=== PATIENT | female | born 1965 | race Caucasian/White ===

== ENCOUNTER 2017-07-01 02:08 | Emergency (ER) | payer BC ==
[~2017-07-01] VITALS: Ht 160 cm; Wt 70.3 kg
[2017-07-01 02:16] VITALS: BP 150/60
[2017-07-01] MEDS ORDERED: NACL 0.9% 1,000 ML IV ONE (02:35)
[2017-07-01] MEDS ORDERED: KETOROLAC 30 MG/ML VIAL IVP ONE (02:35)
[2017-07-01] MEDS ORDERED: ONDANSETRON 4 MG/2 ML VIAL IVP ONE (02:35)
--- NOTE | 2017-07-01 02:40 | NUR ---
C/O BODY ACHES WITH N/V X 3 DAYS. MOTRIN 800 MG TAKEN AT 1999. NO MEDICAL HX ABD IS ROUND, SOFT, NON TENDER, ACTIVE BS X4. PT HAS HEADACHE 10/10, AND WHOLE BODY PAINS 10/10, SHARP PAIN,X3 DAYS.
[2017-07-01] MEDS ORDERED: cefTRIAXone 1,000 MG VIAL ONE (02:55)
--- NOTE | 2017-07-01 03:15 | NUR ---
PT STATES SHE IS HAVING "BAD" HEADACHE AND BODY PAINS, ER MD NOTIFIED, WILL CARRY OUT ORDERS.
[2017-07-01] MEDS ORDERED: MORPHINE SULFATE 4 MG/ML SYR IVP ONE (03:55)
[2017-07-01] MEDS ORDERED: MORPHINE SULFATE 2 MG/ML SYR ONE (04:14)
[2017-07-01 04:24] LABS: HEMATOCRIT 36.4 % (36-48); HEMOGLOBIN 12.2 g/dL (12.0-16.0); MEAN CORPUSCULAR HEMOGLOBIN 31 pg (27-31); MEAN CORPUSCULAR HGB CONC 34 g/dL (33-37); MEAN CORPUSCULAR VOLUME 91 fL (80-94); PLATELET COUNT (AUTO) 282 K/uL (140-450); RED BLOOD CELL COUNT(AUTO) 3.98 MIL/uL (4.20-5.40); RED CELL DISTRIBUTION WIDTH 12.7 % (11.6-13.7); WHITE BLOOD COUNT (AUTO) 14.7 K/uL (4.8-10.8)
[2017-07-01 04:25] LABS: APPEARANCE,URINE SL CLOUDY (CLEAR); BILIRUBIN,URINE NEGATIVE (NEGATIVE); BLOOD, URINE 3+ (NEGATIVE); COLOR,URINE YELLOW (YELLOW); LEUKOCYTE ESTERASE ,URINE NEGATIVE (NEGATIVE); NITRITE, URINE NEGATIVE (NEGATIVE); PH,URINE 6.5 (5.0-9.0); UGLUCOSE NEGATIVE (NEGATIVE)
[2017-07-01 04:47] LABS: ALBUMIN 3.2 g/dL (3.4-5.0); ANION GAP 13.6 (8-16); CARBON DIOXIDE 23.6 mmol/L (21-32); CREATININE 0.7 mg/dL (0.6-1.3); POTASSIUM 3.2 mmol/L (3.5-5.1); TOTAL BILIRUBIN 0.3 mg/dL (0.0-1.0)
--- NOTE | 2017-07-01 05:00 | NUR ---
PT STATES SHE HAS NO HEADACHE AT THIS TIME, VSS, WILL CONTINUE TO MONITOR.
[2017-07-01 05:04] LABS: LYMPHOCYTES % (MANUAL) 11 % (20-46); MONOCYTES % (MANUAL) 5 % (5-12)
[2017-07-01 05:19] LABS: RBC,URINE TOO NUMEROUS TO COUN /HPF (0-5); WBC,URINE 0-5 (RARE) /HPF (0-5)
[2017-07-01 05:40] VITALS: BP 111/72
--- NOTE | 2017-07-01 05:40 | NUR ---
Patient discharged with v/s stable. Written and verbal after care instructions given and explained. Patient alert, oriented and verbalized understanding of instructions. Ambulatory with steady gait. All questions addressed prior to discharge. ID band removed. Patient advised to follow up with PMD. Rx of CIPRO 500MG, NAPROSYN 500MG given. Patient educated on indication of medication including possible reaction and side effects. Opportunity to ask questions provided and answered. PT STATED SHE HAD RIDE HOME AND WAS NOT DRIVING.
== END 2017-07-01 05:40 | disposition home or self-care (01) ==
LOC: MED 02:08
DX: N10 Acute pyelonephritis (principal); E86.0 Dehydration; Z91.040 Latex allergy status
CPT/HCPCS: 36415; 74176; 80053; 81001; 85025; 96361; 96365; 96375; 99285; J0696; J1885; J2270; J2405

== ENCOUNTER 2021-04-25 12:57 | Emergency (ER) | payer BC ==
[~2021-04-25] VITALS: Ht 160 cm; Wt 70.3 kg
[2021-04-25 13:10] VITALS: BP 126/88
--- NOTE | 2021-04-25 13:15 | NUR ---
PT TAKEN TO ER BED 4.
--- NOTE | 2021-04-25 13:26 | NUR ---
DR. HUNG AT PT BEDSIDE FOR FURTHER EVALUATION.
[2021-04-25] MEDS ORDERED: KETOROLAC 60 MG/2 ML VIAL IM ONE (13:30)
--- NOTE | 2021-04-25 13:30 | NUR ---
55/F BIB SELF WITH C/O LOWER ABDOMINAL CRAMPING SINCE YESTERDAY MORNING. STATES PAIN IS CONSTANT AND HAS BEEN WORSENING, REPORTS 1 EPISODE OF DIARRHEA. DENIES N/V, SOB, CP, FEVER. REPORTS TAKING EXCEDRIN WITH NO RELIEF. PMH: DIVERTICULITIS ALLERGIES: LATEX
--- NOTE | 2021-04-25 13:35 | NUR ---
ROTARY CUTTER AT PT BEDSIDE.
--- NOTE | 2021-04-25 13:47 | NUR ---
PT TAKEN TO CT VIA RNICOLE.
--- NOTE | 2021-04-25 13:51 | NUR ---
PT TAKEN TO ER BED 4 VIA GRAEMERNICOLE.
[2021-04-25 13:52] LABS: BASOPHILS # (AUTO) 0.1 K/uL (0.00-0.22); BASOPHILS % (AUTO) 0.7 % (0.0-2.0); EOSINOPHILS % (AUTO) 0.3 % (0.0-4.0); HEMATOCRIT 40.7 % (36-48); HEMOGLOBIN 13.7 g/dL (12.0-16.0); LYMPHOCYTES # (AUTO) 1.7 K/uL (2.5-16.5); LYMPHOCYTES % (AUTO) 13.6 % (20.5-51.1); MEAN CORPUSCULAR HEMOGLOBIN 32 pg (27-31); MEAN CORPUSCULAR HGB CONC 34 g/dL (33-37); MEAN CORPUSCULAR VOLUME 93.5 fL (80-94); MONOCYTES # (AUTO) 0.7 K/uL (0.8-1.0); MONOCYTES % (AUTO) 5.8 % (1.7-9.3); NEUTROPHILS % (AUTO) 79.6 % (42.2-75.2); PLATELET COUNT (AUTO) 368 K/uL (140-450); RED BLOOD CELL COUNT(AUTO) 4.36 MIL/uL (4.20-5.40); RED CELL DISTRIBUTION WIDTH 13.4 % (11.6-13.7); WHITE BLOOD COUNT (AUTO) 12.5 K/uL (4.8-10.8)
[2021-04-25 14:12] LABS: ALBUMIN 4.2 g/dL (3.4-5.0); ANION GAP 15.1 (8-16); CARBON DIOXIDE 26.5 mmol/L (21-32); CREATININE 0.6 mg/dL (0.6-1.3); POTASSIUM 3.6 mmol/L (3.5-5.1); TOTAL BILIRUBIN 0.5 mg/dL (0.0-1.0)
== END 2021-04-25 16:32 | disposition home or self-care (01) ==
LOC: MED 12:57
DX: R10.30 Lower abdominal pain, unspecified (principal); E06.9 Thyroiditis, unspecified; Z90.49 Acquired absence of other specified parts of digestive tract
CPT/HCPCS: 36415; 74176; 80053; 81002; 81025; 83605; 85025; 87040; 96372; 99284; J1885